=== PATIENT | female | born 1955 | race Caucasian/White ===

== ENCOUNTER 2017-06-06 11:55 | Inpatient (IN) | payer BC ==
[2017-06-21] MEDS ORDERED: ACETAMINOPHEN TAB 500 MG TAB PO ONE (05:00)
[2017-06-21] MEDS ORDERED: MELOXICAM 7.5 MG TAB PO ONE (05:00)
[2017-06-21] MEDS ORDERED: ceFAZolin 2 GM in SODIUM CHLORIDE 0.9% 100 ML IVPB ONE (05:00)
[2017-06-21] MEDS ORDERED: TRANEXAMIC ACID 1,000 MG in SODIUM CHLORIDE 0.9% 100 ML IVPB ONE ×4 (05:00)
[2017-06-21] MEDS ORDERED: DEXAMETHASONE SOD PHOSPHATE 10 MG/ML 1 ML VIAL IV ONE (05:24)
[2017-06-21] MEDS ORDERED: ONDANSETRON 4 MG/2 ML VIAL IVP ONE (05:24)
[2017-06-21] MEDS ORDERED: ROPIVACAINE 246.25 MG, EPINEPHrine 0.5 MG, KETOROLAC 30 MG, cloNIDine HCL/PF 80 MCG, WA... MISCELLANE ONE ×5 (05:47)
[2017-06-21] MEDS: LACTATED RINGERS 1,000 ML IV SCH ×2 (06:55→09:21)
[2017-06-21] MEDS ORDERED: LIDOCAINE 1% 20 ML VIAL (10MG/ML) FOR IV START INTRADERMA ONE (06:55)
[2017-06-21] MEDS ORDERED: PROPOFOL 10 MG/ML 20 ML VIAL IV ONE (06:58)
[2017-06-21] MEDS ORDERED: LIDOCAINE 1% INJ 10MG/ML (20 ML MDV) ONE (06:58)
[2017-06-21] MEDS ORDERED: HYDROmorphone (PF) 1 MG/ML ONE (06:58)
[2017-06-21] MEDS ORDERED: ROCURONIUM BROMIDE 10 MG/ML 10 ML VIAL IV ONE (06:58)
[2017-06-21] MEDS ORDERED: SUCCINYLCHOLINE CHLORIDE 100 MG/5 ML SYR IV ONE (06:58)
[2017-06-21] MEDS ORDERED: HEPARIN SODIUM,PORCINE 10,000 UNIT/ML 1 ML VIAL ONE (06:58)
[2017-06-21] MEDS ORDERED: GLYCOPYRROLATE 0.2 MG/ML 2 ML VIAL ONE (06:58)
[2017-06-21] MEDS ORDERED: MIDAZOLAM 2 MG/2 ML VIAL ONE (06:58)
[2017-06-21] MEDS ORDERED: SODIUM CHLORIDE 0.9% IRRIG 1,000 ML BTL IRRIGATION ONE (06:58)
[2017-06-21] MEDS ORDERED: NEOSTIGMINE 1 MG/ML 10 ML VIAL ONE (06:58)
[2017-06-21] MEDS ORDERED: fentaNYL (PF) 50 MCG/ML 2 ML AMP ONE (06:58)
[2017-06-21] MEDS ORDERED: HYDROmorphone 0.5 MG/0.5 ML SYRINGE IVP PRN ×2 (07:00)
[2017-06-21] MEDS ORDERED: hydrOXYzine PAMOATE 25 MG CAP PO PRN (07:00)
[2017-06-21] MEDS ORDERED: DIAZEPAM 5 MG TAB PO PRN ×2 (07:00)
[2017-06-21] MEDS ORDERED: NALOXONE 0.4 MG/ML 1 ML VIAL IV PRN (07:00)
[2017-06-21] MEDS ORDERED: MAGNESIUM HYDROXIDE 2,400 MG/10 ML CUP PO PRN (07:00)
[2017-06-21] MEDS ORDERED: HYDROmorphone 1 MG/ML 1 ML SYRINGE IVP PRN (07:00)
[2017-06-21] MEDS ORDERED: ONDANSETRON 4 MG/2 ML VIAL IVP PRN ×2 (07:00→20:27)
--- NOTE | 2017-06-21 08:35 | P.OP ---
Date of Procedure: 06/21/17 Preoperative Diagnosis: Severe osteoarthritis right hip Postoperative Diagnosis: Severe osteoarthritis right hip Procedure(s) Performed: Right total hip arthroplasty with a direct anterior approach Implants: Fischer and nephew Polarstem size 4 standard Fischer & Nephew R3, 3 hole acetabular shell, 52 mm Fischer & Nephew reflection 6.5 mm cancellus screw, 20 mm 2 Fischer & Nephew R3, XLPE 20 acetabular liner Fischer & Nephew Oxinium femoral head 36 m, +4 All components were press-fit. The articulation is ceramic on polyethylene. Anesthesia: GETA Surgeon: Regan Padilla It Applications Developer #1: Kiersten Chang Estimated Blood Loss (ml): 150 (64 mL returned with Cell Saver) Pathology: other (Femoral head) Condition: stable Disposition: PACU Indications for Procedure: After failure of conservative treatment we discussed the surgical and nonsurgical treatment options at length. Patient wishes to proceed with a total hip arthroplasty with a direct anterior approach. Complications specific to this procedure were discussed at length, including but not limited to infection, leg length discrepancy, dislocation, and nerve injury. Patient is aware of all these complications and informed consent was obtained Operative Findings: The operative findings are consistent with severe osteoarthritis of the right hip Description of Procedure: Patient was seen and evaluated in the preoperative area, consent was reviewed, and the surgical site was marked with a skin marker. Patient was then brought to the operating room and given prophylactic antibiotics intravenously. 1 g of Tranexamic acid was also given. A general anesthetic was administered by the anesthesia department. The patient was then placed on the Anderson table with the bony prominences well-padded. The hip area was then prepped and draped in usual sterile fashion. A universal timeout was then performed, which confirmed the patient's name, surgical site, ALLERGIES, and procedure being performed. Next the incision site was located at 1 cm distal and 1 cm lateral to the anterior superior iliac spine. The skin and subcutaneous tissues were sharply incised. Incision was carefully dissected down to the fascia overlying the tensor fascia molina muscle. This fascia was then incised in line with the incision. Next, using blunt finger dissection, the tensor fascia molina muscle was dissected off its investing fascia. The muscle was then carefully retracted laterally with a cobra retractor over the lateral neck of the femur. Next, the circumflex vessels were identified and cauterized using the AquaMantis device. The anterior hip capsule was then exposed. The capsule was then opened and an inverted T fashion. Cobra retractors were then placed intracapsularly. The proximal femur was then visualized. The femoral neck was then osteotomized appropriate level above the lesser trochanter. Small amount of traction was placed with the Anderson table. A small wedge of bone was then removed from the remaining femoral head. Next, using a corkscrew femoral head was easily removed from the acetabulum. On gross visual inspection, the femoral head had complete loss of articular cartilage in multiple periarticular osteophytes. Attention was then turned to the acetabulum. the acetabulum was exposed and any remaining labrum was excised. Sequential reaming of the acetabulum was performed using fluoroscopic guidance. When the appropriate size was reached, a trial was then placed. The position and fit of the trial was checked with fluoroscopy. The trial was then removed. Then, using fluoroscopic guidance, the final implant was impacted at 20 of anteversion and 40 of abduction, and fully seated in the acetabulum. 2 screws were then placed in the acetabulum. Again fluoroscopy was used to check position of the screws. Next, the liner was then impacted, with a 20 elevated liner located in the anterior superior quadrant. Component locking was confirmed. Attention was then directed to the femur. With the aid of the Anderson table, the femur was externally rotated to approximately 130, extended, and abducted under the opposite leg. A side hook was then placed under the proximal femur, and the side hook elevator was used to elevate the proximal femur. Retractors were then placed. A capsular release was performed, as well as a release of the conjoined tendon, which afforded excellent visualization of the proximal femur. Next, a box osteotome was used to lateralize the proximal femur. A packager hand was then used to locate the femoral canal. Sequential broaching was then performed with appropriate size which afforded excellent fixation in the proximal femur. A trial was then placed with appropriate head and neck, and the hip was gently reduced with the aid of the Anderson table. Fluoroscopy was then used to check position of the components, as well as to ensure equal leg lengths. The hip was then gently dislocated and the trials were then removed. Final implants were then impacted and the hip was again reduced. Final fluoroscopic x-rays confirmed that the components were in anatomic position, as well as equal leg lengths. The hip was also taken through range of motion, and found to be stable. The hip was then copiously irrigated with antibiotic solution with pulsatile lavage. The hip was then irrigated with Irrisept solution. The soft tissues were then injected with a ropivacaine solution, which consisted of 246.25 mg of ropivacaine, 0.5 mg of epinephrine, 30 mg of Toradol, 80 g of clonidine, and 48.45 mL of sterile water, for a total of 100 mL of fluid injected. A second dose of 1 g of Tranexamic acid was also given. the fascia was then closed with 2-0 strata fix suture. The subcutaneous tissue was closed with 3-0 Vicryl. The subcuticular tissue was closed with 3-0 strata fix suture. The skin was then closed with Dermabond tape. The patient was then transferred to the recovery room in stable condition. The pet care assistant NICK Conway was required due to the complexity of surgery, and the need for skilled surgical nurse practitioner for positioning, draping, exposure, retraction, and closure of the wound.
[2017-06-21] MEDS: HYDROmorphone 0.5 MG/0.5 ML SYRINGE IVP PRN ×4 (08:57→09:40)
[2017-06-21] MEDS ORDERED: KETOROLAC 30 MG/ML 1 ML VIAL IVP ONE (09:15)
--- NOTE | 2017-06-21 09:16 | XR ---
EXAMINATION TYPE: XR Hip Limited RT DATE OF EXAM: 06/21/2017 CLINICAL HISTORY: Right hip pain and osteoarthritis. TECHNIQUE: Single AP portable view of right hip is obtained immediately postoperatively. COMPARISON: Bilateral hip x-ray May 16, 2013 FINDINGS: Metallic hardware from total right hip arthroplasty is seen and appears satisfactory in ali gnment and position. There is evidence of recent surgery with subcutaneous gas noted near head and n kathy of femoral component of prosthesis. IMPRESSION: Metallic hardware from total right hip arthroplasty is satisfactory in position.
--- NOTE | 2017-06-21 09:45 | FL ---
EXAMINATION TYPE: FL guidance operating room, XR Hip Limited RT DATE OF EXAM: 06/21/2017 CLINICAL HISTORY: Right hip pain. TECHNIQUE: Fluoroscopy. Limited views right hip. COMPARISON: None. FINDINGS: Fluoroscopic guidance was provided during right hip replacement procedure performed by Dr. Padilla. A total of 27 seconds of fluoroscopic time was utilized during the procedure and 2 spot i ntraoperative images are acquired. Intraoperative images acquired show metallic hardware from right hip arthroplasty that appears satisf actory in position on single frontal projection. IMPRESSION: As Above.
[2017-06-21 10:26] VITALS: BMI 29.9
[2017-06-21] MEDS: SODIUM CHLORIDE 0.9% 1,000 ML IV SCH ×2 (10:38→16:17)
--- NOTE | 2017-06-21 14:00 | P.CONS ---
History of Present Illness - Reason for Consult Consult date: 06/21/17 medical management - Chief Complaint s/p hip replacement - History of Present Illness There is a 62-year-old female that was admitted after hip replacement. Patient says she has been dealing with the pain for several years now. This point patient denies any nausea. Complaining of any pain at this time. Denies any shortness of breath or chest pain. Patient sees Dr. Reyes on an outpatient basis Review of Systems Constitutional: Denies chills, Denies fever Eyes: denies blurred vision, denies pain Ears, nose, mouth and throat: Denies headache, Denies sore throat Cardiovascular: Denies chest pain, Denies shortness of breath Respiratory: Denies cough Gastrointestinal: Denies abdominal pain, Denies diarrhea, Denies nausea, Denies vomiting Genitourinary: Denies dysuria, Denies hematuria Musculoskeletal: Denies myalgias Integumentary: Reports as per HPI Neurological: Denies numbness, Denies weakness Past Medical History Past Medical History: Hyperlipidemia, Hypertension, Osteoarthritis (OA) Additional Past Medical History / Comment(s): Trigeminal Neuralgia affecting right ear, neuropathy bilateral legs, hx small bleed in right eye. History of Any Multi-Drug Resistant Organisms: None Reported Past Surgical History: Back Surgery Additional Past Surgical History / Comment(s): Lumbar fusion, has rods and screws from L2-L5. Spleenectomy, carpal tunnel bilaterally, lipomas removed from bilateral ankles, hemotoma on one ankle removed. Past Anesthesia/Blood Transfusion Reactions: Previous Problems w/ Anesthesia Additional Past Anesthesia/Blood Transfusion Reaction / Comm: Had reaction to Ketamine causing hallucinations and hypertension. Smoking Status: Never smoker - Past Family History Mother Family Medical History: Cancer, Hypertension, Myocardial Infarction (CT) Additional Family Medical History / Comment(s): Breast cancer. from CT. Sister(s) Family Medical History: Cancer Additional Family Medical History / Comment(s): One sister had breast cancer, still living, another sister had non hodkins lymphoma, . Father Family Medical History: Neurologic Disorder Additional Family Medical History / Comment(s): Cerebral hemmorrhage. Medications and Allergies Home Medications Medication Instructions Recorded Confirmed Type Hydrocodone/Acetaminophen [Weinert 1 tab PO Q4H PRN 09/03/15 06/21/17 History 5-325] Ibuprofen [Motrin] 400 mg PO TID PRN 09/03/15 06/21/17 History OXcarbazepine [Trileptal] 300 mg PO BID 09/03/15 06/21/17 History Acetaminophen [Tylenol Extra 1,000 mg PO BID 06/14/17 06/21/17 History Strength] Cyclobenzaprine [Flexeril] 10 mg PO BID 06/14/17 06/21/17 History Multivitamins, Thera [Multivitamin 1 tab PO DAILY 06/14/17 06/21/17 History (formulary)] Lisinopril [Prinivil] 20 mg PO DAILY 06/21/17 06/21/17 History Allergies Allergy/AdvReac Type Severity Reaction Status Date / Time carbamazepine Allergy Rash/Hives Verified 06/21/17 09:18 [From Carbatrol] gabapentin [From Neurontin] Allergy See Comment Verified 06/21/17 09:18 ketamine Allergy Hallucinations, Verified 06/21/17 09:18 hypertension cephalexin monohydrate AdvReac Diarrhea Verified 06/21/17 09:18 [From Keflex] Physical Exam Vitals: Vital Signs Temp Pulse Resp BP Pulse Ox 06/21/17 12:00 68 16 118/58 97 06/21/17 11:45 67 16 120/61 98 06/21/17 11:30 67 16 110/72 99 06/21/17 11:15 63 16 110/66 99 06/21/17 11:00 81 16 108/59 98 06/21/17 10:45 67 16 114/62 100 06/21/17 10:30 69 16 122/63 98 06/21/17 10:19 97.6 F 62 12 122/63 98 06/21/17 09:45 65 16 133/69 100 06/21/17 09:30 98.6 F 62 14 126/73 96 06/21/17 09:15 71 12 139/73 97 06/21/17 09:00 71 14 132/77 98 06/21/17 08:47 98.6 F 82 12 115/64 92 L 06/21/17 06:50 98.2 F 99 16 145/74 98 Intake and Output 06/20/17 06/21/17 06/21/17 22:59 06:59 14:59 Intake Total 1850 200 Output Total 150 Balance 1850 50 Intake: IV 1850 200 Output: Estimated Blood Loss 150 Other: Voiding Method Toilet Weight 81.647 kg Patient Weight 06/22/17 06:59 Weight 81.647 kg - Constitutional General appearance: no acute distress - EENT Eyes: EOMI - Neck Neck: no lymphadenopathy - Respiratory Respiratory: bilateral: CTA, negative: rhonchi, wheezing - Cardiovascular Rhythm: regular - Gastrointestinal General gastrointestinal: no organomegaly, soft, no tenderness Results CBC & Chem 7: 06/21/17 06:32 Assessment and Plan (1) Hypertension Narrative/Plan: Continue lisinopril Controlled Status: Acute (2) Hyperlipidemia Status: Acute (3) S/P hip hemiarthroplasty Narrative/Plan: Per orthopedic surgery Status: Acute
[2017-06-21] MEDS: ceFAZolin 2 GM in SODIUM CHLORIDE 0.9% 100 ML IVPB SCH (16:16)
[2017-06-21] MEDS: oxyCODONE ER 10 MG TAB.ER.12H PO SCH ×2 (17:25→20:29)
[2017-06-21] MEDS: OXcarbazepine 300 MG TAB PO SCH (19:29)
[2017-06-21] MEDS ORDERED: ACETAMINOPHEN TAB 325 MG TAB PO PRN (20:26)
[2017-06-21] MEDS: CYCLOBENZAPRINE 10 MG TAB PO SCH (20:28)
[2017-06-21] MEDS: ASPIRIN 325 MG TAB PO SCH (20:31)
[2017-06-21] MEDS ORDERED: SENNOSIDES-DOCUSATE SODIUM 1 EACH TAB PO SCH (21:00)
[2017-06-21] MEDS: HYDROcodone/APAP 5-325MG 1 EACH TAB PO PRN (22:12)
[2017-06-22] MEDS: ceFAZolin 2 GM in SODIUM CHLORIDE 0.9% 100 ML IVPB SCH (00:09)
[2017-06-22] MEDS: HYDROcodone/APAP 5-325MG 1 EACH TAB PO PRN ×3 (03:56→15:07)
[2017-06-22 06:48] LABS: Basophils % (A) 0 %; CH 34.1; CHCM 33.2; Eosinophils % (A) 0 %; HCT 34.3 % (34.0-46.0); HDW 2.14; Luc # (Auto) 0.16; Luc % (Auto) 1; Lymphocytes # (A) 3.6 k/uL (1.0-4.8); Lymphocytes % (A) 33 %; MCH 33.1 pg (25.0-35.0); MCV 103.2 fL (80.0-100.0); Macrocytosis Slight; Monocytes # (A) 0.8 k/uL (0-1.0); Monocytes % (A) 7 %; Neutrophils # (A) 6.3 k/uL (1.3-7.7); Neutrophils % (A) 57 %; RBC 3.33 m/uL (3.80-5.40); RDW 14.1 % (11.5-15.5); WBC 10.9 k/uL (3.8-10.6); WBC (Perox) 11.33
[2017-06-22] MEDS: ASPIRIN 325 MG TAB PO SCH (08:22)
[2017-06-22] MEDS: OXcarbazepine 300 MG TAB PO SCH (08:22)
[2017-06-22] MEDS: CYCLOBENZAPRINE 10 MG TAB PO SCH (08:28)
[2017-06-22] MEDS: oxyCODONE ER 10 MG TAB.ER.12H PO SCH (08:28)
[2017-06-22] MEDS ORDERED: LISINOPRIL 20 MG TAB PO SCH (09:00)
[2017-06-22] MEDS ORDERED: MELOXICAM 7.5 MG TAB PO SCH (09:00)
--- NOTE | 2017-06-22 09:15 | P.DS ---
Providers Date of admission: 06/21/17 05:56 Expected date of discharge: 06/22/17 Attending physician: Regan Padilla Consults: 06/21/17 07:00 Consult Physician Routine Consulting Provider: Snehal Kapoor Consult Reason/Comments: medical management Do you want consulting provider notified?: Yes Primary care physician: Janet Reyes MD - Discharge Diagnosis(es) (1) Primary osteoarthritis of right hip Current Visit: Yes Status: Acute (2) S/P total hip arthroplasty Current Visit: Yes Status: Acute Hospital Course: This is a 62-year-old female with known history of degenerative arthritis of the right hip. The patient presents for evaluation. After discussion and consideration patient elects to proceed with total hip arthroplasty. The patient is seen preoperatively by Dr. Padilla and cleared for surgery. Patient is admitted to [facility] on 06/21/2017 for total hip arthroplasty. The procedures performed without complication or sequelae. The patient is doing well postoperatively. Labs and vital signs are stable on day of discharge. On day of discharge patient's hip incision is healing well. There is minimal erythema. There is no drainage noted at this time. There is minimal soft tissue swelling to the hip and thigh. Patient has full foot and ankle motion without difficulty or pain. Neurovascular status to the right lower extremity is intact. Patient is discharged home in good condition. Please see med rec for accurate list of home medications. Plan - Discharge Summary New Discharge Prescriptions: New Aspirin 325 mg PO BID #60 tab HYDROcodone/APAP 5-325MG [Duncan 5-325] 1 - 2 tab PO Q4-6H PRN #90 tab PRN Reason: Pain Sennosides-Docusate Sodium [Senokot-S] 1 tab PO BID #60 tablet No Action Hydrocodone/Acetaminophen [Duncan 5-325] 1 tab PO Q4H PRN PRN Reason: Pain Ibuprofen [Motrin] 400 mg PO TID PRN PRN Reason: Pain OXcarbazepine [Trileptal] 300 mg PO BID Multivitamins, Thera [Multivitamin (formulary)] 1 tab PO DAILY Cyclobenzaprine [Flexeril] 10 mg PO BID Acetaminophen [Tylenol Extra Strength] 1,000 mg PO BID Lisinopril [Prinivil] 20 mg PO DAILY Discharge Medication List Hydrocodone/Acetaminophen [Duncan 5-325] 1 tab PO Q4H PRN 09/03/15 [History] Ibuprofen [Motrin] 400 mg PO TID PRN 09/03/15 [History] OXcarbazepine [Trileptal] 300 mg PO BID 09/03/15 [History] Acetaminophen [Tylenol Extra Strength] 1,000 mg PO BID 06/14/17 [History] Cyclobenzaprine [Flexeril] 10 mg PO BID 06/14/17 [History] Multivitamins, Thera [Multivitamin (formulary)] 1 tab PO DAILY 06/14/17 [History ] Lisinopril [Prinivil] 20 mg PO DAILY 06/21/17 [History] Aspirin 325 mg PO BID #60 tab 06/22/17 [Rx] HYDROcodone/APAP 5-325MG [Duncan 5-325] 1 - 2 tab PO Q4-6H PRN #90 tab 06/22/17 [ Rx] Sennosides-Docusate Sodium [Senokot-S] 1 tab PO BID #60 tablet 06/22/17 [Rx] Follow up Appointment(s)/Referral(s): Regan Padilla DO [Doctor of Osteopathic Medicine] - 2 Weeks Ambulatory/Diagnostic Orders: Ambulatory Physical Therapy Order [THER.AMB] Location: Determined By Patient Activity/Diet/Wound Care/Special Instructions: Weightbearing as tolerated with walker May shower after 2 days if no drainage from the incision Follow-up with [facility] in 2 weeks with any questions or concerns Discharge Disposition: HOME SELF-CARE
--- NOTE | 2017-06-22 11:44 | P.PN ---
Subjective Progress Note Date: 06/22/17 Principal diagnosis: Status post right hip hemiarthroplasty Patient having some pain with ambulation. Good appetite today no nausea vomiting positive flatus Objective - Vital Signs Vital signs: Vital Signs Temp 98.4 F 06/22/17 08:00 Pulse 98 06/22/17 08:00 Resp 18 06/22/17 08:00 BP 148/75 06/22/17 08:00 Pulse Ox 96 06/22/17 08:00 Intake & Output 06/21/17 06/22/17 06/22/17 18:59 06:59 18:59 Intake Total 200 1150 Output Total 150 Balance 50 1150 Weight 81.647 kg 81.647 kg Intake: IV 200 Intake, IV Titration 650 Amount Sodium Chloride 0.9% 1, 650 000 ml @ 65 mls/hr IV . [id number] LEN Rx#:[id number] Oral 500 Output: Estimated Blood Loss 150 Other: Voiding Method Toilet # Voids 1 1 - Exam gen:alert and oriented lungs:clear to auscultation heart:s1s2 abdomen:soft and depressible,non tender ext:no edema - Labs CBC & Chem 7: 06/22/17 06:28 06/21/17 06:32 Labs: Abnormal Lab Results - Last 24 Hours (Table) 06/22/17 Range/Units 06:28 WBC 10.9 H (3.8-10.6) k/uL RBC 3.33 L (3.80-5.40) m/uL Hgb 11.0 L (11.4-16.0) gm/dL MCV 103.2 H (80.0-100.0) fL Assessment and Plan (1) Hypertension Narrative/Plan: Continue lisinopril Controlled Status: Acute (2) Hyperlipidemia Status: Acute (3) S/P hip hemiarthroplasty Narrative/Plan: Per orthopedic surgery Plans home discharge home per orthopedic surgery Status: Acute
[2017-06-22] MEDS ORDERED: MULTIVITAMINS, THERA 1 EACH TAB PO SCH (12:00)
[2017-06-22 15:15] VITALS: TEMP 97.9
[2017-06-22 15:57] VITALS: BP 161/83; RESP 16
[2017-06-22 16:12] VITALS: PULSE 85
== END 2017-06-22 16:16 | disposition home or self-care (01) | DRG 470 ==
LOC: 2ORMAIN 06-21 05:56 → 3SUR 06-21 08:50
PROVIDERS: ADMIT Orthopaedic Surgery; ATTEND Orthopaedic Surgery
PROC: 30233N0 Transfusion of Autologous Red Blood Cells into Peripheral Vein, Percutaneous Approach (ICD-10-PCS; 2017-06-21)
PROC: 0SR904A Replacement of Right Hip Joint with Ceramic on Polyethylene Synthetic Substitute, Uncemented, Open Approach (ICD-10-PCS; principal; 2017-06-21 07:00)
DX: M16.11 Unilateral primary osteoarthritis, right hip (principal); G62.9 Polyneuropathy, unspecified; I10 Essential (primary) hypertension; M25.751 Osteophyte, right hip; E78.5 Hyperlipidemia, unspecified; G50.0 Trigeminal neuralgia; Z98.1 Arthrodesis status; Z86.69 Personal history of other diseases of the nervous system and sense organs; Z82.49 Family history of ischemic heart disease and other diseases of the circulatory system; Z80.7 Family history of other malignant neoplasms of lymphoid, hematopoietic and related tissues; Z80.3 Family history of malignant neoplasm of breast; Z79.899 Other long term (current) drug therapy; Z90.81 Acquired absence of spleen; Z79.1 Long term (current) use of non-steroidal anti-inflammatories (NSAID); Z88.8 Allergy status to other drugs, medicaments and biological substances; Z79.891 Long term (current) use of opiate analgesic
CPT/HCPCS: 36415; 73501; 80051; 84132; 85025; 86850; 86891; 86900; 86901; 88300

== ENCOUNTER → 2017-06-13 | Outpatient (CLI) | payer BC ==
[2017-06-13 09:25] LABS: EKG EKG PERFORMED
[2017-06-13 09:46] LABS: CH 33.9; CHCM 32.8; HCT 42.3 % (34.0-46.0); HDW 2.15; HGB 13.7 gm/dL (11.4-16.0); MCH 33.6 pg (25.0-35.0); MCHC 32.3 g/dL (31.0-37.0); Macrocytosis Slight; Mean Platelet Volume 7.1; RBC 4.07 m/uL (3.80-5.40); RDW 13.7 % (11.5-15.5); WBC 7.1 k/uL (3.8-10.6)
[2017-06-13 10:00] LABS: Partial Thromboplastin Time 26.5 sec (22.0-30.0); Prothrombin Time 10.5 sec (9.0-12.0)
[2017-06-13 10:06] LABS: Appearance,Urine Clear (Clear); Bilirubin,Urine Negative (Negative); Glucose,Urine (UA) Negative (Negative); Ketones,Urine Negative (Negative); Leukocyte Esterase,Urine Negative (Negative); Mucus,Urine Rare /hpf; Nitrite,Urine Negative (Negative); PH, Urine 5.5 (5.0-8.0); Particle Count 1695; Protein,Urine Negative (Negative); RBC,Urine 3 /hpf (0-5); Specific Gravity,Urine 1.017 (1.001-1.035); UA Billing (MACRO vs. MICRO) MICRO; Urobilinogen,Urine <2.0 mg/dL (<2.0); WBC,Urine 1 /hpf (0-5)
[2017-06-13 10:09] LABS: ALT 48 U/L (9-52); AST 34 U/L (14-36); Alkaline Phosphatase 64 U/L (38-126); Anion Gap 10 mmol/L; Blood Urea Nitrogen 20 mg/dL (7-17); Calcium 9.4 mg/dL (8.4-10.2); Carbon Dioxide 22 mmol/L (22-30); Chloride 103 mmol/L (98-107); Glucose 95 mg/dL (74-99); Non-African American GFR(MDRD) >60 (>60 ml/min/1.73 sqM); Potassium 5.8 mmol/L (3.5-5.1); Sodium 135 mmol/L (137-145); Total Bilirubin 0.3 mg/dL (0.2-1.3); Total Protein 7.1 g/dL (6.3-8.2)
== END | disposition home or self-care (01) ==
LOC: LABPAT 08:38
PROVIDERS: ATTEND Orthopaedic Surgery
DX: Z01.810 Encounter for preprocedural cardiovascular examination (principal); Z01.812 Encounter for preprocedural laboratory examination; M19.90 Unspecified osteoarthritis, unspecified site
CPT/HCPCS: 80053; 81001; 85027; 85610; 85730; 86850; 86900; 86901; 87070; 93005

== ENCOUNTER → 2017-06-20 | Outpatient (CLI) | payer BC ==
[2017-06-20 09:08] LABS: Potassium 5.3 mmol/L (3.5-5.1)
== END | disposition home or self-care (01) ==
LOC: LABWHC1 08:43
PROVIDERS: ATTEND Family Medicine
DX: E87.5 Hyperkalemia (principal)
CPT/HCPCS: 36415; 80051

== ENCOUNTER → 2018-06-09 | Outpatient (CLI) | payer MEDICARE, BC ==
[2018-06-09 11:15] LABS: Appearance,Urine Clear (Clear); Bacteria,Urine Rare /hpf; Bilirubin,Urine Negative (Negative); Blood,Urine Trace (Negative); Color,Urine Yellow; Glucose,Urine (UA) Negative (Negative); Ketones,Urine Negative (Negative); Leukocyte Esterase,Urine Negative (Negative); Mucus,Urine Rare /hpf; Nitrite,Urine Negative (Negative); PH, Urine 5.5 (5.0-8.0); Protein,Urine Negative (Negative); RBC,Urine 7 /hpf (0-5); Specific Gravity,Urine 1.018 (1.001-1.035); Urobilinogen,Urine <2.0 mg/dL (<2.0); WBC,Urine 1 /hpf (0-5)
[2018-06-09 11:16] LABS: HCT 45.3 % (34.0-46.0); HGB 14.7 gm/dL (11.4-16.0); MCH 32.9 pg (25.0-35.0); MCHC 32.3 g/dL (31.0-37.0); MCV 101.7 fL (80.0-100.0); Macrocytosis Slight; Mean Platelet Volume 6.9; Platelet Count 347 k/uL (150-450); RBC 4.46 m/uL (3.80-5.40); RDW 13.3 % (11.5-15.5); WBC 6.2 k/uL (3.8-10.6)
[2018-06-09 11:29] LABS: ALT 27 U/L (9-52); AST 38 U/L (14-36); Albumin 4.6 g/dL (3.5-5.0); Alkaline Phosphatase 67 U/L (38-126); Anion Gap 14 mmol/L; Blood Urea Nitrogen 16 mg/dL (7-17); Calcium 9.7 mg/dL (8.4-10.2); Carbon Dioxide 22 mmol/L (22-30); Chloride 100 mmol/L (98-107); Glucose 86 mg/dL (74-99); Potassium 4.8 mmol/L (3.5-5.1); Sodium 136 mmol/L (137-145); Total Bilirubin 0.5 mg/dL (0.2-1.3); Total Protein 7.9 g/dL (6.3-8.2)
[2018-06-09 12:34] LABS: Partial Thromboplastin Time 26.1 sec (22.0-30.0); Prothrombin Time 10.2 sec (9.0-12.0)
== END ==
LOC: LABPAT 10:04
PROVIDERS: ATTEND Orthopaedic Surgery
DX: Z01.818 Encounter for other preprocedural examination (principal); Z01.812 Encounter for preprocedural laboratory examination; Z51.81 Encounter for therapeutic drug level monitoring; Z79.01 Long term (current) use of anticoagulants
CPT/HCPCS: 36415; 80053; 81001; 85027; 85610; 85730; 87070; 93005

== ENCOUNTER → 2018-08-14 | Outpatient (CLI) | payer MEDICARE, BC ==
[2018-08-14 09:29] LABS: HCT 42.9 % (34.0-46.0); HGB 13.8 gm/dL (11.4-16.0); MCH 32.6 pg (25.0-35.0); MCHC 32.1 g/dL (31.0-37.0); MCV 101.5 fL (80.0-100.0); Macrocytosis Slight; Mean Platelet Volume 6.5; Platelet Count 343 k/uL (150-450); RBC 4.22 m/uL (3.80-5.40); RDW 13.5 % (11.5-15.5); WBC 5.6 k/uL (3.8-10.6)
[2018-08-14 09:30] LABS: ALT 37 U/L (9-52); AST 34 U/L (14-36); Albumin 4.1 g/dL (3.5-5.0); Alkaline Phosphatase 60 U/L (38-126); Anion Gap 10 mmol/L; Blood Urea Nitrogen 17 mg/dL (7-17); Calcium 9.6 mg/dL (8.4-10.2); Carbon Dioxide 26 mmol/L (22-30); Chloride 97 mmol/L (98-107); Glucose 77 mg/dL (74-99); Potassium 5.3 mmol/L (3.5-5.1); Sodium 133 mmol/L (137-145); Total Bilirubin 0.3 mg/dL (0.2-1.3); Total Protein 7.1 g/dL (6.3-8.2)
[2018-08-14 09:33] LABS: Appearance,Urine Clear (Clear); Bilirubin,Urine Negative (Negative); Blood,Urine Small (Negative); Color,Urine Yellow; Glucose,Urine (UA) Negative (Negative); Ketones,Urine Negative (Negative); Leukocyte Esterase,Urine Negative (Negative); Mucus,Urine Rare /hpf; Nitrite,Urine Negative (Negative); PH, Urine 6.5 (5.0-8.0); Protein,Urine Negative (Negative); Prothrombin Time 10.1 sec (9.0-12.0); RBC,Urine 3 /hpf (0-5); Specific Gravity,Urine 1.016 (1.001-1.035); Urobilinogen,Urine <2.0 mg/dL (<2.0); WBC,Urine 1 /hpf (0-5)
== END | disposition home or self-care (01) ==
LOC: LABPAT 08:24
PROVIDERS: ATTEND Orthopaedic Surgery
DX: Z01.812 Encounter for preprocedural laboratory examination (principal)
CPT/HCPCS: 80053; 81001; 85027; 85610; 85730; 87070

== ENCOUNTER 2018-08-22 07:25 | Inpatient (IN) | payer MEDICARE, BC ==
[2018-08-16 15:02] VITALS: BMI 32.4
[~2018-08-22 07:25] MED LIST: ACETAMINOPHEN TAB 500 MG TAB PO ONE; DEXAMETHASONE SOD PHOSPHATE 10 MG/ML 1 ML VIAL IV ONE; LIDOCAINE 1% 20 ML VIAL (10MG/ML) FOR IV START INTRADERMA PRN; MELOXICAM 7.5 MG TAB PO ONE; ONDANSETRON 4 MG/2 ML VIAL IVP ONE; ROPIVACAINE 246.25 MG, EPINEPHrine 0.5 MG, KETOROLAC 30 MG, cloNIDine HCL/PF 80 MCG, WA... MISCELLANE ONE; SCOPOLAMINE 1.5MG/72HR PATCH TRANSDERM ONE; TRANEXAMIC ACID 1,000 MG in SODIUM CHLORIDE 0.9% 50 ML IVPB ONE; ceFAZolin IN SWFI 2 GM/20 ML SYRINGE IVP ONE
[2018-08-22] MEDS ORDERED: ceFAZolin 3,000 MG in SODIUM CHLORIDE 0.9% IRRIGATIO 3,000 ML IRRIGATION ONE (09:06)
[2018-08-22] MEDS: LACTATED RINGERS 1,000 ML IV SCH (09:06)
[2018-08-22] MEDS ORDERED: LACTATED RINGERS 1,000 ML IV ONE (10:36)
--- NOTE | 2018-08-22 10:42 | P.OP ---
Date of Procedure: 08/22/18 Preoperative Diagnosis: Severe osteoarthritis left hip Postoperative Diagnosis: Severe osteoarthritis left hip Procedure(s) Performed: Left total hip arthroplasty with a direct anterior approach Implants: Fischer and nephew Polarstem size 5 standard Fischer & Nephew R3, 3 hole acetabular shell, 52 mm Fischer & Nephew reflection 6.5 mm cancellus screw, 20 mm 2 Fischer & Nephew R3, XLPE 20 acetabular liner Fischer & Nephew Oxinium femoral head 36 m, +0 All components were press-fit. The articulation is Oxinium on polyethylene. Anesthesia: spinal Surgeon: Regan Padilla Refrigeration Specialist #1: Kiersten Chang Estimated Blood Loss (ml): 300 (130 mL returned in Cell Saver) Pathology: other (Femoral head) Condition: stable Disposition: PACU Indications for Procedure: After failure of conservative treatment we discussed the surgical and nonsurgical treatment options at length. Patient wishes to proceed with a total hip arthroplasty with a direct anterior approach. Complications specific to this procedure were discussed at length, including but not limited to infection, leg length discrepancy, dislocation, and nerve injury. Patient is aware of all these complications and informed consent was obtained Operative Findings: The operative findings are consistent with severe osteoarthritis of the left hip Description of Procedure: Patient was seen and evaluated in the preoperative area, consent was reviewed, and the surgical site was marked with a skin marker. Patient was then brought to the operating room and given prophylactic antibiotics intravenously. 1 g of Tranexamic acid was also given. A spinal anesthetic was administered by the anesthesia department. The patient was then placed on the [place] table with the bony prominences well-padded. The hip area was then prepped and draped in usual sterile fashion. A universal timeout was then performed, which confirmed the patient's name, surgical site, ALLERGIES, and procedure being performed. Next the incision site was located at 1 cm distal and 1 cm lateral to the anterior superior iliac spine. The skin and subcutaneous tissues were sharply incised. Incision was carefully dissected down to the fascia overlying the tensor fascia molina muscle. This fascia was then incised in line with the incision. Next, using blunt finger dissection, the tensor fascia molina muscle was dissected off its investing fascia. The muscle was then carefully retracted laterally with a cobra retractor over the lateral neck of the femur. Next, the circumflex vessels were identified and cauterized using the AquaMantis device. The anterior hip capsule was then exposed. The capsule was then opened and an inverted T fashion. Cobra retractors were then placed intracapsularly. The proximal femur was then visualized. The femoral neck was then osteotomized appropriate level above the lesser trochanter. Small amount of traction was placed with the [place] table. A small wedge of bone was then removed from the remaining femoral head. Next, using a corkscrew femoral head was easily removed from the acetabulum. On gross visual inspection, the femoral head had complete loss of articular cartilage in multiple periarticular osteophytes. Attention was then turned to the acetabulum. the acetabulum was exposed and any remaining labrum was excised. Sequential reaming of the acetabulum was performed using fluoroscopic guidance. When the appropriate size was reached, a trial was then placed. The position and fit of the trial was checked with fluoroscopy. The trial was then removed. Then, using fluoroscopic guidance, the final implant was impacted at 20 of anteversion and 40 of abduction, and fully seated in the acetabulum. 2 screws were then placed in the acetabulum. Again fluoroscopy was used to check position of the screws. Next, the liner was then impacted, with a 20 elevated liner located in the anterior superior quadrant. Component locking was confirmed. Attention was then directed to the femur. With the aid of the [place] table, the femur was externally rotated to approximately 130, extended, and abducted under the opposite leg. A side hook was then placed under the proximal femur, and the side hook elevator was used to elevate the proximal femur. Retractors were then placed. A capsular release was performed, as well as a release of the conjoined tendon, which afforded excellent visualization of the proximal femur. Next, a box osteotome was used to lateralize the proximal femur. A handbag operator was then used to locate the femoral canal. Sequential broaching was then performed with appropriate size which afforded excellent fixation in the proximal femur. A trial was then placed with appropriate head and neck, and the hip was gently reduced with the aid of the [place] table. Fluoroscopy was then used to check position of the components, as well as to ensure equal leg lengths. The hip was then gently dislocated and the trials were then removed. Final implants were then impacted and the hip was again reduced. Final fluoroscopic x-rays confirmed that the components were in anatomic position, as well as equal leg lengths. The hip was also taken through range of motion, and found to be stable. The hip was then copiously irrigated with antibiotic solution with pulsatile lavage. The hip was then irrigated with Irrisept solution. The soft tissues were then injected with a ropivacaine solution, which consisted of 246.25 mg of ropivacaine, 0.5 mg of epinephrine, 30 mg of Toradol, 80 g of clonidine, and 48.45 mL of sterile water, for a total of 100 mL of fluid injected. A second dose of 1 g of Tranexamic acid was also given. the fascia was then closed with 2-0 strata fix suture. The subcutaneous tissue was closed with 3-0 Vicryl. The subcuticular tissue was closed with 3-0 strata fix suture. The skin was then closed with Dermabond glue and a sterile silver dressing. The patient was then transferred to the recovery room in stable condition. The sales assistant displays NICK Conway was required due to the complexity of surgery, and the need for skilled marketing administrative assistant for positioning, draping, exposure, retraction, and closure of the wound.
[2018-08-22] MEDS ORDERED: MAGNESIUM HYDROXIDE 2,400 MG/10 ML CUP PO PRN (10:51)
[2018-08-22] MEDS ORDERED: HYDROcodone/APAP 7.5-325MG 1 EACH TAB PO PRN (10:51)
[2018-08-22] MEDS ORDERED: NALOXONE 0.4 MG/ML 1 ML VIAL IV PRN (10:51)
[2018-08-22] MEDS ORDERED: HYDROmorphone 1 MG/ML 1 ML SYRINGE IVP PRN ×3 (10:51)
[2018-08-22] MEDS ORDERED: ONDANSETRON 4 MG/2 ML VIAL IVP PRN (10:51)
[2018-08-22] MEDS ORDERED: hydrOXYzine PAMOATE 25 MG CAP PO PRN (10:51)
[2018-08-22] MEDS ORDERED: DIAZEPAM 5 MG TAB PO PRN (10:51)
[2018-08-22] MEDS: HYDROmorphone 0.5 MG/0.5 ML SYRINGE IVP PRN ×2 (11:01→11:06)
[2018-08-22 11:12] VITALS: RESP 16
[2018-08-22] MEDS: fentaNYL (PF) 50 MCG/ML 2 ML AMP IVP ONE ×4 (11:14→11:43)
--- NOTE | 2018-08-22 11:24 | FL ---
Fluoroscopy History: L anterior hip replacement L hip replacement anterior approach, 35sec fl time
[2018-08-22] MEDS: SODIUM CHLORIDE 0.9% 1,000 ML IV SCH (12:24)
[2018-08-22] MEDS: HYDROcodone/APAP 7.5-325MG 1 EACH TAB PO PRN ×3 (12:44→23:34)
--- NOTE | 2018-08-22 14:30 | P.CONS ---
History of Present Illness - Reason for Consult Consult date: 08/22/18 - History of Present Illness The patient is a 63 yo F with a PMH of trigeminal neuralgia, HTN, HLD, and OA was seen s/p elective L total hip arthroplasty. The patient had previously undergone R hip arthrplasty and noted gradually worsening pain of the L hip not controlled adequately by OTC pain medications. She notes continued post- surgical L hip pain / but otherwise denied any active complaints. She denied chest pain, SOB, nausea, vomiting, abdominal pain, fever, chills, headache, dizziness, weakness, or numbness. Review of Systems Pertinent positives and negatives as discussed in HPI, a complete review of systems was performed and all other systems are negative. Past Medical History Past Medical History: Hyperlipidemia, Hypertension, Osteoarthritis (OA) Additional Past Medical History / Comment(s): Trigeminal Neuralgia affecting right ear, neuropathy bilateral legs, hx small bleed in right eye. History of Any Multi-Drug Resistant Organisms: None Reported Past Surgical History: Back Surgery, Joint Replacement Additional Past Surgical History / Comment(s): Lumbar fusion, has rods and screws from L2-L5. Splenectomy, carpal tunnel bilaterally, lipomas removed from bilateral ankles, hemotoma on one ankle removed, right hip replaced Past Anesthesia/Blood Transfusion Reactions: Previous Problems w/ Anesthesia Additional Past Anesthesia/Blood Transfusion Reaction / Comm: Had reaction to Ketamine causing hallucinations and hypertension. Past Psychological History: No Psychological Hx Reported Smoking Status: Never smoker Past Alcohol Use History: Rare Past Drug Use History: None Reported - Past Family History Mother Family Medical History: Cancer, Hypertension, Myocardial Infarction ([place]) Additional Family Medical History / Comment(s): Breast cancer. from [place]. Sister(s) Family Medical History: Cancer Additional Family Medical History / Comment(s): One sister had breast cancer, still living, another sister had non hodkins lymphoma, . Father Family Medical History: Neurologic Disorder Additional Family Medical History / Comment(s): Cerebral hemmorrhage. Medications and Allergies Home Medications Medication Instructions Recorded Confirmed Type OXcarbazepine [Trileptal] 300 mg PO BID 09/03/15 08/22/18 History Acetaminophen [Tylenol Extra 1,000 mg PO Q6H PRN 06/14/17 08/22/18 History Strength] Multivitamins, Thera [Multivitamin 1 tab PO DAILY 06/14/17 08/22/18 History (formulary)] Lisinopril [Prinivil] 20 mg PO DAILY 06/21/17 08/22/18 History HYDROcodone/APAP 5-325MG [[place] 1 - 2 tab PO Q4-6H PRN #90 tab 06/22/17 Rx 5-325] Allergies Allergy/AdvReac Type Severity Reaction Status Date / Time carbamazepine Allergy Rash/Hives Verified 08/22/18 12:42 [From Carbatrol] gabapentin [From Neurontin] Allergy See Comment Verified 08/22/18 12:42 ketamine Allergy Hallucinations, Verified 08/22/18 12:42 hypertension cephalexin monohydrate AdvReac Diarrhea Verified 08/22/18 12:42 [From Keflex] Physical Exam Vitals: Vital Signs Temp Pulse Pulse Resp BP BP Pulse Ox 08/22/18 11:35 58 L 16 135/77 100 08/22/18 11:20 58 L 16 136/81 100 08/22/18 11:05 63 16 133/78 100 08/22/18 10:50 97 F L 63 16 132/80 100 08/22/18 07:50 98.1 F 81 18 151/89 99 Intake and Output 08/21/18 08/22/18 08/22/18 22:59 06:59 14:59 Intake Total 1751 Output Total 650 Balance 1101 Intake: IV 1751 Output: Urine 350 Estimated Blood Loss 300 Other: Voiding Method Toilet Weight 88.451 kg General: [non toxic], [no distress], [appears at stated age], [Obese] Derm: [no unusual rashes/lesions] [no unusual ecchymoses], [warm], [dry] Head: [atraumatic], [normocephalic], [symmetric] Eyes: [EOMI], [no lid lag], [anicteric sclera], [pupils equal round reactive to light] ENT: [Nose and ears atraumatic], [no thrush], [no pharyngeal erythema] Neck: [No thyromegaly], [no cervical lymphadenopathy], [trachea midline], [ supple] Mouth: [no lip lesion], [mucus membranes moist] Cardiovascular: [S1S2 reg], [no murmur], [positive posterior tibial pulse bilateral], [no edema], [capillary refill less than 2 seconds] Lungs: [CTA bilateral], [no rhonchi, no rales] , [no accessory muscle use] Abdominal: [soft], [ nontender to palpation], [no guarding], [no appreciable organomegaly], [normal bowel sounds] Ext: [no gross muscle atrophy], [muscle strength 5 out of 5 in all extremities except LLE, limited to 3/5 due to pain], [no contractures], L anterior hip dressing, clean, intact Neuro: [ CN II-XI grossly intact], [light touch intact all 4 extremities], [ finger to nose within normal limits], Psych: [Alert], [oriented], [appropriate affect] Results CBC & Chem 7: 08/22/18 08:06 Assessment and Plan Plan: Post-operative pain s/p L LYNSEY -Agree w/ Dilaudid and [place] prn HTN -Resume Lisinopril home dose 20 mg qd Trigeminal neuralgia -Resume Trileptal DVT//GI proph -Aspirin 325 mg bid -Will start Protonix in setting of NSAID and high dose Aspirin use
[2018-08-22] MEDS: ceFAZolin IN SWFI 2 GM/20 ML SYRINGE IVP SCH (16:46)
[2018-08-22] MEDS ORDERED: SENNOSIDES-DOCUSATE SODIUM 1 EACH TAB PO SCH (21:00)
[2018-08-22] MEDS: ASPIRIN 325 MG TAB PO SCH (21:15)
[2018-08-22] MEDS: OXcarbazepine 300 MG TAB PO SCH (21:15)
[2018-08-22] MEDS ORDERED: CLINDAMYCIN 150 MG CAP PO STA (23:24)
[2018-08-23] MEDS: ceFAZolin IN SWFI 2 GM/20 ML SYRINGE IVP SCH (00:03)
[2018-08-23] MEDS: LACTATED RINGERS 1,000 ML IV SCH (03:55)
[2018-08-23] MEDS: SODIUM CHLORIDE 0.9% 1,000 ML IV SCH ×2 (05:49→08:23)
[2018-08-23] MEDS: HYDROcodone/APAP 7.5-325MG 1 EACH TAB PO PRN ×3 (06:06→14:21)
[2018-08-23] MEDS ORDERED: PANTOPRAZOLE 40 MG TABLET PO SCH (07:30)
[2018-08-23] MEDS: ASPIRIN 325 MG TAB PO SCH (08:20)
[2018-08-23] MEDS: OXcarbazepine 300 MG TAB PO SCH (08:22)
[2018-08-23 08:42] VITALS: BP 130/74; PULSE 85; TEMP 98.7
[2018-08-23 08:47] LABS: Basophils % (A) 0 %; Eosinophils % (A) 0 %; HCT 34.4 % (34.0-46.0); HGB 11.1 gm/dL (11.4-16.0); Lymphocytes # (A) 2.2 k/uL (1.0-4.8); Lymphocytes % (A) 18 %; MCH 32.7 pg (25.0-35.0); MCHC 32.2 g/dL (31.0-37.0); MCV 101.8 fL (80.0-100.0); Macrocytosis Slight; Mean Platelet Volume 7.6; Monocytes # (A) 1.3 k/uL (0-1.0); Monocytes % (A) 10 %; Neutrophils # (A) 8.5 k/uL (1.3-7.7); Neutrophils % (A) 70 %; Platelet Count 245 k/uL (150-450); RBC 3.38 m/uL (3.80-5.40); RDW 13.5 % (11.5-15.5); WBC 12.2 k/uL (3.8-10.6)
[2018-08-23] MEDS ORDERED: MELOXICAM 7.5 MG TAB PO SCH (09:00)
[2018-08-23] MEDS ORDERED: LISINOPRIL 20 MG TAB PO SCH (09:00)
--- NOTE | 2018-08-23 09:09 | P.DS ---
Providers Date of admission: 08/22/18 07:25 Expected date of discharge: 08/23/18 Attending physician: Regan Padilla Consults: 08/22/18 10:51 Consult Physician Routine Consulting Provider: Luz Piña Consult Reason/Comments: medical management Do you want consulting provider notified?: Yes Primary care physician: Janet Reyes MD - Discharge Diagnosis(es) (1) Primary osteoarthritis of left hip Current Visit: Yes Status: Acute (2) S/P total hip arthroplasty Current Visit: No Status: Acute Hospital Course: This is a 63-year-old female with known history of degenerative arthritis of the left hip. The patient presents for evaluation. After discussion and consideration patient elects to proceed with total hip arthroplasty. The patient is seen preoperatively by Dr. Padilla and medically cleared for surgery by their primary care physician. Patient is admitted to [facility] on 08/22/2018 for total hip arthroplasty. The procedures performed without complication or sequelae. The patient is doing well postoperatively. Labs and vital signs are stable on day of discharge. On day of discharge patient's hip incision is healing well. There is minimal erythema. There is no drainage noted at this time. There is minimal soft tissue swelling to the hip and thigh. Patient has full foot and ankle motion without difficulty or pain. Neurovascular status to the left lower extremity is intact. Patient is discharged home in good condition. Please see med rec for accurate list of home medications. Plan - Discharge Summary Discharge Rx Participant: Yes New Discharge Prescriptions: New Aspirin 325 mg PO BID #60 tab HYDROcodone/APAP 7.5-325MG [[place] 7.5-325] 1 - 2 tab PO Q4-6H PRN #84 tab PRN Reason: Pain Sennosides [Senokot] 1 tab PO BID #60 tablet No Action OXcarbazepine [Trileptal] 300 mg PO BID Multivitamins, Thera [Multivitamin (formulary)] 1 tab PO DAILY Acetaminophen [Tylenol Extra Strength] 1,000 mg PO Q6H PRN PRN Reason: Pain Lisinopril [Prinivil] 20 mg PO DAILY HYDROcodone/APAP 5-325MG [[place] 5-325] 1 - 2 tab PO Q4-6H PRN #90 tab PRN Reason: Pain Discharge Medication List OXcarbazepine [Trileptal] 300 mg PO BID 09/03/15 [History] Acetaminophen [Tylenol Extra Strength] 1,000 mg PO Q6H PRN 06/14/17 [History] Multivitamins, Thera [Multivitamin (formulary)] 1 tab PO DAILY 06/14/17 [History ] Lisinopril [Prinivil] 20 mg PO DAILY 06/21/17 [History] HYDROcodone/APAP 5-325MG [[place] 5-325] 1 - 2 tab PO Q4-6H PRN #90 tab 06/22/17 [ Rx] Aspirin 325 mg PO BID #60 tab 08/23/18 [Rx] HYDROcodone/APAP 7.5-325MG [[place] 7.5-325] 1 - 2 tab PO Q4-6H PRN #84 tab [Rx] Sennosides [Senokot] 1 tab PO BID #60 tablet 08/23/18 [Rx] Follow up Appointment(s)/Referral(s): Regan Padilla DO [Doctor of Osteopathic Medicine] - 2 Weeks Activity/Diet/Wound Care/Special Instructions: Weightbearing as tolerated with walker. Leave dressing intact. Dressing may be removed by home care nurse in 10 days. May shower with dressing on. Please follow-up with [facility] in 2 weeks and call with any questions or concerns, . Discharge Disposition: HOME WITH HOME HEALTH SERVICES
--- NOTE | 2018-08-23 11:59 | P.PN ---
Subjective Progress Note Date: 08/23/18 The patient was seen and examined at the bedside on 08/23/18. She notes that her pain has improved significantly and she has been ambulating to the restroom. She denied any active complaints including chest pain, Sob, nausea, vomiting, dizziness, headache, or dysuria. Objective - Vital Signs Vital signs: Vital Signs Temp 98.7 F 08/23/18 07:00 Pulse 85 08/23/18 07:00 Resp 16 08/23/18 00:35 BP 130/74 08/23/18 07:00 Pulse Ox 99 08/23/18 07:00 Intake & Output 08/22/18 08/23/18 08/23/18 18:59 06:59 18:59 Intake Total 1751 560 Output Total 650 Balance 1101 560 Weight 88.451 kg Intake: IV 1751 Intake, IV Titration 560 Amount Sodium Chloride 0.9% 1, 560 000 ml @ 70 mls/hr IV . [id number] LEN Rx#:[id number] Output: Urine 350 Estimated Blood Loss 300 Other: Voiding Method Toilet Toilet # Voids 1 - Exam General: Non-toxic, in no acute distress, appears stated age HEENT: NC/AT, anicteric sclerae, moist conjunctiva, no lid-lag, PERRLA Cardiovascular: S1/S2 wnl, no murmurs, rubs, or gallops Lungs: Clear to auscultation, normal respiratory effort, no accessory muscle use Abdominal: Soft, nontender, non-distended, no guarding, rebound, or rigidity Skin: Warm, dry Extremities: No edema or contractures, L anterior hip dressing, intact and clean Psychiatric: Alert and oriented to person, place and time, appropriate affect, Intact judgment Neuro: CN II-XII grossly intact, Strength 5/5 in all extremities except LLE due to pain, Speech intact, Sensation to light touch grossly intact throughout - Labs CBC & Chem 7: 08/23/18 06:22 08/22/18 08:06 Labs: Abnormal Lab Results - Last 24 Hours (Table) 08/23/18 Range/Units 06:22 WBC 12.2 H (3.8-10.6) k/uL RBC 3.38 L (3.80-5.40) m/uL Hgb 11.1 L (11.4-16.0) gm/dL MCV 101.8 H (80.0-100.0) fL Neutrophils # 8.5 H (1.3-7.7) k/uL Monocytes # 1.3 H (0-1.0) k/uL Assessment and Plan Plan: Post-operative pain s/p L LYNSEY -Pain control as per Orthopedic service -Currently on [place] 7.5 mg, Dilaudid, and Mobic HTN -C/w Lisinopril 20 mg qd Trigeminal neuralgia -C/w Trileptal DVT//GI proph -Aspirin 325 mg bid -Advised patient to c/w Protonix while she is taking aspirin high dose bid, even after discharge
== END 2018-08-23 14:46 | disposition home health service (06) | DRG 470 ==
LOC: 2ORMAIN 07:25 → 4SSUR 10:52
PROVIDERS: ADMIT Orthopaedic Surgery; ATTEND Orthopaedic Surgery
PROC: 30233N0 Transfusion of Autologous Red Blood Cells into Peripheral Vein, Percutaneous Approach (ICD-10-PCS; 2018-08-22)
PROC: 0SRB06A Replacement of Left Hip Joint with Oxidized Zirconium on Polyethylene Synthetic Substitute, Uncemented, Open Approach (ICD-10-PCS; principal; 2018-08-22 09:20)
DX: M16.12 Unilateral primary osteoarthritis, left hip (principal); G50.0 Trigeminal neuralgia; I10 Essential (primary) hypertension; E78.5 Hyperlipidemia, unspecified; G62.9 Polyneuropathy, unspecified; Z96.641 Presence of right artificial hip joint; Z98.1 Arthrodesis status; Z82.49 Family history of ischemic heart disease and other diseases of the circulatory system; Z80.7 Family history of other malignant neoplasms of lymphoid, hematopoietic and related tissues; Z80.3 Family history of malignant neoplasm of breast; Z82.0 Family history of epilepsy and other diseases of the nervous system; Z79.899 Other long term (current) drug therapy; Z88.1 Allergy status to other antibiotic agents; Z88.8 Allergy status to other drugs, medicaments and biological substances
CPT/HCPCS: 73501; 84132; 85025; 86850; 86891; 86900; 86901; 88300

== ENCOUNTER → 2019-02-05 | Outpatient (CLI) | payer MEDICARE, BC ==
[2019-02-05 11:51] LABS: Anisocytosis Slight; Basophils # (A) 0.1 k/uL (0-0.2); Basophils % (A) 1 %; Eosinophils # (A) 0.1 k/uL (0-0.7); Eosinophils % (A) 2 %; HCT 43.1 % (34.0-46.0); HGB 13.8 gm/dL (11.4-16.0); Lymphocytes # (A) 2.8 k/uL (1.0-4.8); Lymphocytes % (A) 43 %; MCH 30.9 pg (25.0-35.0); MCHC 31.9 g/dL (31.0-37.0); MCV 96.8 fL (80.0-100.0); Mean Platelet Volume 7.1; Monocytes # (A) 0.5 k/uL (0-1.0); Monocytes % (A) 7 %; Neutrophils % (A) 45 %; Platelet Count 291 k/uL (150-450); RBC 4.45 m/uL (3.80-5.40); RDW 16.3 % (11.5-15.5); WBC 6.6 k/uL (3.8-10.6)
[2019-02-05 17:32] LABS: Anion Gap 10.3 mmol/L (4.00-12.00); Carbon Dioxide 25.7 mmol/L (21.6-31.8); Potassium 5.5 mmol/L (3.5-5.5)
== END | disposition home or self-care (01) ==
LOC: LABWHC1 11:00
PROVIDERS: ATTEND Psychiatry & Neurology Neurology
DX: G50.0 Trigeminal neuralgia (principal)
CPT/HCPCS: 36415; 80051; 82565; 84450; 84460; 84520; 85025

== ENCOUNTER → 2020-06-27 | Outpatient (CLI) | payer MEDICARE, BC ==
--- NOTE | 2020-06-27 10:13 | XR ---
EXAMINATION TYPE: XR chest 2V DATE OF EXAM: 06/27/2020 COMPARISON: Chest x-ray August 29, 2015. HISTORY: Persistent cough. TECHNIQUE: Frontal and lateral views of the chest are obtained. FINDINGS: There is no focal air space opacity, pleural effusion, or pneumothorax seen. The cardiac silhouette size is within normal limits. Partial visualization of surgical change in the lumbar spine . IMPRESSION: No suspicious acute pulmonary process.
== END | disposition home or self-care (01) ==
LOC: RADXRMAIN 09:38
PROVIDERS: ATTEND Nurse Practitioner Family
DX: R05 Cough (principal)
CPT/HCPCS: 71046

== ENCOUNTER → 2020-09-09 | Outpatient (CLI) | payer MEDICARE, BC ==
[2020-09-09 07:52] LABS: Calcium 9.4 mg/dL (8.4-10.2); Potassium 4.5 mmol/L (3.5-5.1)
--- NOTE | 2020-09-09 07:54 | CT ---
EXAMINATION TYPE: CT brain wo con DATE OF EXAM: 09/09/2020 COMPARISON: None HISTORY: Dizziness CT DLP: 1036.[address] of the brain was performed. The ventricles, basal cisterns and sulci overlying the cerebral convexities demonstrate mild enlargem ent. There is no evidence for intracranial hemorrhage or sulcal effacement. There is decreased attenuation about the periventricular white matter and deep white matter of both c erebral hemispheres, compatible with chronic small vessel ischemia. Differential diagnosis does inclu de demyelination. No mass effects are seen.No midline shift. Osseous calvarium is intact. If symptoms persist consider MRI. IMPRESSION: 1. Age related atrophic and chronic small vessel ischemic change without acute intracranial process s een at this time.
== END | disposition home or self-care (01) ==
LOC: RADCTMAIN 07:02
PROVIDERS: ATTEND Family Medicine
DX: G31.1 Senile degeneration of brain, not elsewhere classified (principal); I67.82 Cerebral ischemia
CPT/HCPCS: 36415; 70450; 80048

== ENCOUNTER → 2020-11-25 | Outpatient (CLI) | payer MEDICARE, BC ==
--- NOTE | 2020-11-25 18:56 | ECHOF ---
Referral Reason:R00.2 Palpitations R42 Dizziness MEASUREMENTS -------- HEIGHT: 165.1 cm WEIGHT: 93.0 kg BP: RVIDd: 3.3 cm (< 3.3) IVSd: 1.0 cm (0.6 - 1.1) LVIDd: 4.7 cm (3.9 - 5.3) LVPWd: 1.5 cm (0.6 - 1.1) IVSs: 1.7 cm LVIDs: 3.6 cm LVPWs: 1.2 cm LA Diam: 3.5 cm (2.7 - 3.8) LAESV Index (A-L): 31.25 ml/m Ao Diam: 3.3 cm (2.0 - 3.7) AV Cusp: 1.9 cm (1.5 - 2.6) MV EXCURSION: 21.171 mm (> 18.000) MV EF SLOPE: 111 mm/s (70 - 150) EPSS: 0.5 cm MV E Charles: 0.52 m/s MV DecT: 205 ms MV A Charles: 0.72 m/s MV E/A Ratio: 0.72 RAP: 5.00 mmHg RVSP: 12.57 mmHg FINDINGS -------- Sinus rhythm. This was a technically adequate study. LV size, wall thickness and systolic function are normal, with an EF greater than 55%. The left jc tricular size is normal. The right ventricle is normal in size. LA is midly dilated 29-33ml/m2. The right atrial size is normal. The aortic valve is trileaflet, and appears structurally normal. No aortic stenosis or regurgitation. The mitral valve is normal. Mild mitral regurgitation is present. The tricuspid valve appears structurally normal. Mild tricuspid regurgitation present. Right vent ricular systolic pressure is normal at < 35 mmHg. Trace/mild (physiologic) pulmonic regurgitation. The aortic root size is normal. There is no pericardial effusion. CONCLUSIONS -------- 1. LV size, wall thickness and systolic function are normal, with an EF greater than 55%. 2. LA is midly dilated 29-33ml/m2. 3. The aortic valve is trileaflet, and appears structurally normal. No aortic stenosis or regurgitati on. 4. Mild mitral regurgitation is present. 5. Mild tricuspid regurgitation present. 6. Trace/mild (physiologic) pulmonic regurgitation. 7. There is no pericardial effusion. [employer] DEVELOPER: Minoo Jackson RDCS
--- NOTE | 2020-11-28 13:34 | HM ---
HOLTER MONITOR REPORT Patient was monitored for 48 hours. Baseline rhythm is a sinus mechanism with normal conduction. The average rate 75 beats per minute, minimum of 56, maximum of 120 beats per minute. Ventricular ectopic activity was present in the form of rare single PVCs. Supraventricular ectopic activity was present in the form of rare single PACs. There were short burst of atrial tachycardia. No episodes of atrial fibrillation were noted. Symptoms of lightheaded did not correlate with any dysrhythmia. CONCLUSION: 1. Sinus mechanism baseline rhythm. 2. Rare ventricular ectopic activity. 3. Rare supraventricular ectopic activity with episode of atrial tachycardia. 4. Symptoms did not correlate with any dysrhythmia. MMODL / IJN: [id number] /
== END ==
LOC: RADECHMAIN 11:16
PROVIDERS: ATTEND Family Medicine
DX: I08.3 Combined rheumatic disorders of mitral, aortic and tricuspid valves (principal); I51.7 Cardiomegaly
CPT/HCPCS: 93225; 93226; 93306

== ENCOUNTER → 2020-11-25 | Outpatient (CLI) | payer MEDICARE, BC | END | disposition home or self-care (01) | LOC: LABWHC1 10:53 | PROVIDERS: ATTEND Nurse Practitioner Family | DX: Z53.9 Procedure and treatment not carried out, unspecified reason (principal) ==

== ENCOUNTER → 2024-02-23 | Outpatient (CLI) | payer MEDICARE, BC ==
[2024-02-23 16:07] LABS: BUN/Creat Ratio 29.29 Ratio (12.00-20.00); Blood Urea Nitrogen 20.5 mg/dL (9.0-27.0); Calcium 9.6 mg/dL (8.7-10.3); Carbon Dioxide 27.1 mmol/L (21.6-31.8); Chloride 98 mmol/L (96-109); Creatine Kinase 309 U/L (26-186); Glucose 85 mg/dL (70-110); Potassium 5.7 mmol/L (3.5-5.5); Sodium 134 mmol/L (135-145)
== END | disposition home or self-care (01) ==
LOC: LABWHC1 08:19
PROVIDERS: ATTEND Internal Medicine
DX: M62.81 Muscle weakness (generalized) (principal)
CPT/HCPCS: 36415; 80048; 82550